=== PATIENT | male | born 1935 | race Caucasian/White ===

== ENCOUNTER → 2016-06-29 | Outpatient (CLI) | payer MEDICARE, BC ==
[~2016-06-29] MED LIST: ASPIRIN81 M1 PO; CLARITIN10 MG PO; FISH OIL 1,0001 EAC1 PO; LIPITOR PO; MULTI-DAY VITAM1 TAB PO; TICLID250 MG PO; TRENTAL400 MG PO; VIT C PO; VITAMIN C1000 M2 PO; ZESTORETIC 10/11 TAB PO; ZESTORETIC 20/11 TAB PO; ZOSYN 3.373.375 G/VI IV
--- NOTE | ~2016-06-29 | CR61 ---
[facility] A Service of [facility] & [facility] RADIOLOGY TEXT RESULTS PATIENT: SHANTE FERNANDEZ LOCATION: [facility] : 33 UNIT #: [id number] AGE: [address]: ANTONIA DENNEY MD SEX: M ORDER DR: [id number] [facility] [address] [place], [place] [address] [id number] O MR#: [id number] Acc #: [id number] NAME: SHANTE FERNANDEZ : 1935 SEX: M STUDY DATE/TIME: 06/29/2016 17:34 UNIT: [facility] ROOM: STUDY DESCRIPTION: CR Cervical Spine Min 5 Views Attending Physician: Antonia Denney M.D. Referring Physician: Antonia Denney M.D. Ordering Physician: Antonia Denney M.D. Primary Care Physician: Antonia Denney M.D. MEDICAL IMAGING REPORT This report is preliminary unless electronic signature is present EXAM Cervical spine series. HISTORY Left-sided neck pain and muscle spasms for the past 4 days. TECHNIQUE 5 views of the cervical spine were obtained including oblique views. FINDINGS Alignment is satisfactory. Degenerative changes are seen at all cervical discs. There is mild degenerative disc disease at C2-3 with moderate degenerative changes at C3-4 and C4-5 where there is mild disc space narrowing and small osteophytes. At C5-6 and C6-7, there is more advanced degenerative disc disease worst at the C6-7 level with both anterior and posterior osteophytes. At C7-T1, there is moderate degenerative disc disease. The facets show degenerative changes from C3-T1. Facet hypertrophy is most prominent at C4-5 and C5-6 and greater on the right than on the left. The oblique views show foraminal stenosis, most prominent on the left at C6-7 also present to a moderately severe degree at C5-6 on the left. The right foramina are mildly narrowed except C6-7, where there is moderate to moderate foraminal stenosis. IMPRESSION Multilevel degenerative disc and facet disease as described above. Foraminal stenosis is most prominent at C6-7, left worse than right. This is also the level where the degenerative disc disease is most severe. Dictated by... Michael Roy M.D. [facility] A Service of [facility] RADIOLOGY TEXT RESULTS PATIENT: SHANTE FERNANDEZ LOCATION: [facility] : 33 UNIT #: [id number] AGE: [address]: ANTONIA DENNEY MD SEX: M ORDER DR: THIS IS AN ELECTRONICALLY VERIFIED REPORT Michael Roy M.D. at 06/30/2016 2:32 PM RLRenetta/ludy TD: 06/30/2016 10:11 JOB #: [id number] MEDICAL IMAGING REPORT COPY
--- NOTE | ~2016-06-29 | CR184 ---
[facility] A Service of [facility] & [facility] RADIOLOGY TEXT RESULTS PATIENT: SHANTE FERNANDEZ LOCATION: [facility] : 33 UNIT #: [id number] AGE: [address]: ANTONIA DENNEY MD SEX: M ORDER DR: [id number] [facility] [address] [place], [place] [address] [id number] O MR#: [id number] Acc #: [id number] NAME: SHANTE FERNANDEZ : 1935 SEX: M STUDY DATE/TIME: 06/29/2016 17:35 UNIT: [facility] ROOM: STUDY DESCRIPTION: CR Lumbar Spine Min 4 Views Attending Physician: Antonia Denney M.D. Referring Physician: Antonia Denney M.D. Ordering Physician: Antonia Denney M.D. Primary Care Physician: Antonia Denney M.D. MEDICAL IMAGING REPORT This report is preliminary unless electronic signature is present EXAM Lumbar spine series HISTORY Back pain with muscle spasms worse when sitting down. Symptoms over the past 4 days. Pain is more to the left than to the right. TECHNIQUE 5 views of the lumbar spine were obtained including oblique views and compared with a previous examination from 10/24/2013. FINDINGS There is a mild lumbar dextroscoliosis. It has worsened slightly since the previous examination secondary to more collapse of the disc on the left side at L2-3. At T12-L1, there is moderate degenerative disc disease with a grade 1 retrolisthesis. There is slightly more disc space narrowing when compared to the previous exam. At the L1-2 level, disc space height is preserved and small osteophytes are noted. At L2-3, there is significant progression of degenerative disc disease since the previous examination with more disc space narrowing especially on the left. The posterior aspect of the disc in particular shows progressive narrowing. Posterior facet degenerative change at L2-3 appears slightly worse. At L3-4, osteophytes are slightly larger and there is slightly more disc space narrowing. Moderately severe facet disease is again seen. At L4-5, no significant changes are seen. There is moderate facet hypertrophy and mild degenerative disc disease. At L5-S1, no significant changes are seen with moderate facet arthropathy. Oblique views show no pars defects. No fractures or destructive bone lesions are seen. 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 There has been significant progression of degenerative disc disease at STS. [facility] A Service of [facility] & [facility] RADIOLOGY TEXT RESULTS PATIENT: SHANTE FERNANDEZ LOCATION: [facility] : 33 UNIT #: [id number] AGE: [address]: ANTONIA DENNEY MD SEX: M ORDER DR: several levels. Generally, the progression has been mild, although at the L2-3 level, there is significantly more disc space narrowing especially posteriorly and on the left, and there is more scoliosis as a result of this on the AP view. Dictated by... Mihcael Roy M.D. THIS IS AN ELECTRONICALLY VERIFIED REPORT Michael Roy M.D. at 06/30/2016 2:32 PM ROYER/eric TD: 06/30/2016 10:19 JOB #: [id number] MEDICAL IMAGING REPORT COPY
== END | disposition home or self-care (01) ==
LOC: CRAD 16:56
DX: M62.838 Other muscle spasm (principal); M50.30 Other cervical disc degeneration, unspecified cervical region; M51.36 Other intervertebral disc degeneration, lumbar region; M41.26 Other idiopathic scoliosis, lumbar region
CPT/HCPCS: 72050; 72110